=== PATIENT | male | born 2005 | race Caucasian/White ===

== ENCOUNTER 2025-05-16 16:46 | Emergency (ER) | payer BC, SELFPAY ==
[2025-05-16 17:11] VITALS: BP 132/81; PULSE 94; RESP 17; TEMP 37.1; O2SAT 97; BMI 37.7
--- NOTE | 2025-05-16 20:04 | ED_ITS ---
HPI - Eye Problem General Chief complaint: Eye Problems Stated complaint: popped blood vessels in eyes and irritation Time Seen by Provider: 05/16/25 20:04 Source: patient Mode of arrival: Ambulatory History of Present Illness HPI Narrative: Patient is a 19-year-old male without any significant past medical history comes into the ED from home for evaluation of ?pop blood vessels in both eyes states that he is not sure how this happened states that this happened a few days ago states that he went to the walk-in clinic on [address] was prescribed some eye ointment he states that he has been reporting some achy pain around the eyes w hen in contact to light but otherwise no new complaints no actual visual disturbances no headache. No trauma no falls not on any blood thinners. Related Data Allergies Allergy/AdvReac Type Severity Reaction Status Date / Time No Known Drug Allergies Allergy Verified 05/16/25 17:11 Review of Systems Review of Systems Narrative: General: Denies fever, chills, weight loss HEENT: Positive eye irritation, Denies headache, eye drainage, head trauma, sore throat, voice change Cardiovascular: Denies any chest pain, palpitations, tachycardia Respiratory: Denies any shortness of breath, cough, wheeze, stridor GI/: Denies any abdominal pain, nausea, vomiting, diarrhea, bright red blood per rectum, melanotic stools, urinary frequency, urinary retention, dysuria, hematuria MSK: Denies any joint pain, muscle pains, swelling Skin: Denies any rashes, lesions, discoloration Neuro: Denies any headache, lightheadedness, dizziness, fainting, weakness Psych: Denies SI/HI Exam Narrative Exam Narrative: General: Cooperative, well-developed, not in acute distress HEENT: Normocephalic, atraumatic, PERRLA, subconjunctival hemorrhage noted bilateral eyes, no pain with extraocular eye motion, no surrounding erythema to the eyelids Neck: Active full range of motion, atraumatic Chest: Normal to inspection, negative crepitus, no overlying erythema ecchymosis Respiratory: Normal respiratory effort, not in acute respiratory distress, clear to auscultation bilaterally negative cough, wheeze, tachypnea, rhonchi, rales Cardiology: Regular rate rhythm negative gallop, murmur, rubs GI/: No tenderness to palpation, soft, non rigid, normal to inspection, exam deferred MSK: Full active range of motion in all 4 extremities, atraumatic, no tenderness to palpation of any bony prominences Skin: No rashes or lesions noted Neuro: Alert awake oriented x3, moves all 4 extremities spontaneously, cranial nerves intact, able to answer all questions appropriately follows commands appropriately Psych: Cooperative, negative suicidal or homicidal ideations Initial Vital Signs Initial Vital Signs: Vital Signs Temperature 98.7 F 05/16/25 17:11 Pulse Rate 94 H 05/16/25 17:11 Respiratory Rate 17 05/16/25 17:11 Blood Pressure 132/81 05/16/25 17:11 Pulse Oximetry 97 05/16/25 17:11 Oxygen Delivery Method Room Air 05/16/25 17:11 Course Vital Signs Vital signs: Vital Signs - 8 hr 05/16/25 17:11 Temperature 98.7 F Pulse Rate 94 H Respiratory Rate 17 Blood Pressure 132/81 Pulse Oximetry 97 Oxygen Delivery Method Room Air MDM - Eye Problem MDM Narrative Medical decision making narrative: 19-year-old male without any significant past medical history comes into the ED from home for evaluation of ?popped blood vessels to his eye. States that this was spontaneous a proximally 1 week ago, was seen at [facility] a few days ago, was started on erythromycin ointment however he states that given the fact that he noticed more discoloration to his eye as well as stating that light makes his eyes a little painful decided come into the ED for further evaluation treatment. On my exam patient with PERRLA, no pain with actual extraocular eye motion. His exam is consistent with subconjunctival hemorrhage. He does not wear any contacts does not wear corrective lenses. Patient was discharged home with outpatient follow up with Ophthalmology and primary care he was given strict return precautions he verbalized understanding and agrees to being discharged home with outpatient follow up Discharge Plan Departure Patient Disposition: Home Clinical Impression: Subconjunctival hemorrhage Instructions: DI for Subconjunctival Hemorrhage Activity Restrictions/Additional Instructions: Follow up with the primary care and Ophthalmology as needed Please read the discharge instructions sheet carefully and bring all papers to all doctor follow-up visits, as it may contain information that your doctor may want to see. Disease processes change and evolve, if your symptoms worsen or if you develop any new symptoms that are concerning to you please return for evaluation. Your evaluation today does not show any evidence of any life- threatening/serious illnesses requiring admission to the hospital or surgery. Please follow-up with your doctor for re-evaluation in approximately 1 day. Seek immediate medical attention for any worrisome symptoms. *If you do not have a primary care provider please contact the [facility] Resource line at [phone]. They will ask some questions about your medical history and help get you set up with a doctor in the community. Stand Alone Forms: Patient Portal/API
[2025-05-16 20:24] VITALS: BP 134/92; PULSE 88; RESP 18; O2SAT 97
== END 2025-05-16 20:25 | disposition home or self-care (01) ==
PROVIDERS: Emergency Provider Student in an Organized Health Care Education/Training Program
DX: H11.30 Conjunctival hemorrhage, unspecified eye (principal)
CPT/HCPCS: 99281